=== PATIENT | female | born 1950 | race Caucasian/White ===

== ENCOUNTER 2021-08-03 11:16 | Outpatient (CLI) | payer BC | END 2021-08-03 11:17 | disposition home or self-care (01) | LOC: CSHMRI 11:16 | PROVIDERS: ATTEND Registered Nurse | DX: M47.817 Spondylosis without myelopathy or radiculopathy, lumbosacral region (principal); M47.816 Spondylosis without myelopathy or radiculopathy, lumbar region; G89.4 Chronic pain syndrome; M51.36 Other intervertebral disc degeneration, lumbar region; M48.061 Spinal stenosis, lumbar region without neurogenic claudication | CPT/HCPCS: 72148 ==

== ENCOUNTER 2021-12-01 09:34 | Outpatient (CLI) | payer MEDICARE ==
[2021-12-01] MEDS ORDERED: Iopamidol 300 61% 100 ML VIAL FS ONE (14:21)
== END 2021-12-01 09:35 | disposition home or self-care (01) ==
LOC: CSHCT 09:34
PROVIDERS: ATTEND Registered Nurse
DX: E27.8 Other specified disorders of adrenal gland (principal); K76.89 Other specified diseases of liver
CPT/HCPCS: 74170; 82565; Q9967

== ENCOUNTER 2022-12-15 15:23 | Emergency (ER) | payer MEDICARE, OTHER ==
[2022-12-15 16:11] LABS: #Basophils 0.1 10x3/uL (0.0-0.2); #Eosinphils 0.6 10x3/uL (0.0-0.5); #Monocytes 0.8 10x3/uL (0.0-1.1); #Neutrophils 11.4 10x3/uL (1.5-8.4); %Basophils 0.4 % (0.0-2.0); %Lymphocytes 14.5 % (18.0-47.0); %Monocytes 5.5 % (0.0-10.0); %Neutrophils 75.2 % (40.0-75.0); Hematocrit 36.2 % (34.9-44.5); Hemoglobin 12.5 g/dL (12.0-15.5); Mean Corpuscular HGB CONC 34.5 g/dL (32.0-36.0); Mean Corpuscular Hemoglobin 33.2 pg (27.0-33.0); Mean Platelet Volume 11.6 fl (7.4-10.4); Platelet Count 248 10x3/uL (150-450); RBC Distribution Width 12.9 % (11.5-14.5); Red Blood Cell (RBC) Count 3.77 10x6/uL (3.90-5.03); White Blood Cell (WBC) Count 15.2 10x3/uL (3.5-10.5)
[2022-12-15] MEDS ORDERED: Ondansetron PF 4 MG/2 ML Vial ONE (16:13)
[2022-12-15 16:26] LABS: ALT (SGPT) 18 U/L (8-55); AST (SGOT) 25 U/L (5-34); Albumin 4.3 g/dL (3.4-4.8); Alkaline Phosphatase 76 U/L (40-110); Anion Gap 17 mmol/L (10-20); BUN (Urea Nitrogen) 23 mg/dL (9.8-20.1); Bilirubin, Total 0.4 mg/dL (0.2-1.2); Calc. Creatinine Clearance 0 mL/min (70-130); Calcium 9.1 mg/dL (7.8-10.44); Carbon Dioxide 22 mmol/L (23-31); Chloride 105 mmol/L (98-107); Estimated GFR 56; Globulin 2.4 g/dL (2.4-3.5); Glucose 105 mg/dL (80-115); Potassium 3.9 mmol/L (3.5-5.1); Protein, Total 6.7 g/dL (5.8-8.1); Sodium 140 mmol/L (136-145)
[2022-12-15 16:32] LABS: Troponin I Less than 0.010 ng/mL (< 0.028)
[2022-12-15] MEDS ORDERED: Dicyclomine 20 MG/2 ML VIAL ONE (17:25)
[2022-12-15] MEDS ORDERED: Loperamide HCl 2 MG CAP ONE ×2 (17:25→19:48)
[2022-12-17 22:26] LABS: Campy jejuni + coli by PCR Negative (Negative); STEC Shiga Toxin 1+2 Negative (Negative); Salmonella spp. by PCR Negative (Negative); Shigella spp + EIEC by PCR Negative (Negative)
== END 2022-12-15 16:50 | disposition home or self-care (01) ==
LOC: CSHERS 15:23
DX: K52.9 Noninfective gastroenteritis and colitis, unspecified (principal); I10 Essential (primary) hypertension; F17.210 Nicotine dependence, cigarettes, uncomplicated
CPT/HCPCS: 71045; 80053; 84484; 85025; 87505; 93005; 96372; 96374; J2405

== ENCOUNTER 2023-07-10 12:35 | Outpatient (CLI) | payer MEDICARE ==
[~2023-07-10 12:35] MED LIST: Iopamidol 370 76% 100 ML VIAL ONE
== END 2023-07-10 12:36 | disposition home or self-care (01) ==
LOC: CSHCT 12:35
PROVIDERS: ATTEND Internal Medicine Cardiovascular Disease
DX: I77.9 Disorder of arteries and arterioles, unspecified (principal); Z95.828 Presence of other vascular implants and grafts; I65.21 Occlusion and stenosis of right carotid artery; M47.812 Spondylosis without myelopathy or radiculopathy, cervical region
CPT/HCPCS: 70498; 82565; Q9967

== ENCOUNTER 2023-09-27 14:38 | Outpatient (CLI) | payer MEDICARE | END 2023-09-27 14:39 | disposition home or self-care (01) | LOC: CSHCT 14:38 | PROVIDERS: ATTEND Registered Nurse | DX: Z12.2 Encounter for screening for malignant neoplasm of respiratory organs (principal); F17.210 Nicotine dependence, cigarettes, uncomplicated; N20.0 Calculus of kidney | CPT/HCPCS: 71271 ==

== ENCOUNTER 2024-11-03 11:00 | Outpatient (CLI) | payer MEDICARE | END 2024-11-03 11:01 | disposition home or self-care (01) | LOC: CSHCT 11:00 | PROVIDERS: ATTEND Registered Nurse | DX: Z12.2 Encounter for screening for malignant neoplasm of respiratory organs (principal); F17.210 Nicotine dependence, cigarettes, uncomplicated | CPT/HCPCS: 71271 ==